=== PATIENT | male | born 1950 | race Caucasian/White ===

== ENCOUNTER 2024-05-01 13:21 | Day surgery (SDC) | payer OTHER, SELFPAY ==
[2024-05-01] VITALS (7 sets, daily range): BP systolic 99–136; BP diastolic 61–80; PULSE 62–81; RESP 12–18; TEMP 36.5–36.8; O2SAT 98–99
--- NOTE | 2024-05-01 | PATH_ITS ---
[facility] Accession Number: [id number] No. of containers..01 Tissue . 01 Material submitted: . colon - SIGMOID BIOPSIES . 01 Clinical history: . R/O APTHLOUS ULCERS . 01 Diagnosis: Colon, sigmoid, biopsies: Benign colonic mucosa with focal active colitis, along with focal slight architectural changes. Negative for dysplasia, microscopic colitis, or granuloma. See comment. -- Comment: The presence of focal active inflammation (no crypt abscess seen) with underlying inflammatory expansion of the lamina propria with basal lymphoplasmacytosis and surface mucosal erosion (aphthous inflammation) is not entirely specific and can be seen in infection, medication effect, but may be seen in the setting of early inflammatory bowel disease as well. Correlation with the endoscopic appearance and with clinical features is needed for further evaluation. -- Immunohistochemical stains performed with appropriate controls to assess plasma cells shows focal expansion of lamina propria by polytopic plasma cells using CD138, and kappa and lambda light chain immune stains. No definite chronic changes or granuloma seen. -- Technical Note: The immunohistochemical stains reported were performed at [facility] ([address], [facility] [address]). They were developed and their performance characteristics determined by [facility]. They have not been cleared or approved by the U.S. Food and Drug Administration, although such approval is not required for analyte-specific reagents of this type. [facility] 05/06/2024 [facility]8 Local . 01 Electronically signed: . Loren Weber MD, Pathologist NPI- [id number] . 01 Gross description: . Received in formalin with two patient identifiers and sigmoid biopsy, are three rodriguez soft tissue fragments, 0.3 to 0.4 cm in greatest dimension. Submitted in A1. ([id number]) /MRV 05/02/2024 1450 Local . 01 Pathologist provided ICD-10: Z12.11 . 01 CPT . 640919, [id number], [id number] Specimen Comment: A courtesy copy of this report has been sent to [phone] Performed at: [address] [facility] [address], [place], [place] [id number] MD Estebna Martinez MD Phone: [phone]
--- NOTE | 2024-05-01 14:26 | PM.HP.1 ---
History of Present Illness History of Present Illness Date Patient Seen: 05/01/24 Chief complaint: Dx Colonoscopy Narrative: Personal history of colon polyps Meds Home Medications and Allergies Home Medications Medication Instructions Recorded Confirmed Type amlodipine 5 mg tablet 5 mg PO DAILY 05/01/24 05/01/24 History aspirin 81 mg capsule 81 mg PO DAILY 05/01/24 05/01/24 History atorvastatin 40 mg tablet 40 mg PO DAILY 05/01/24 05/01/24 History omeprazole 20 mg tablet,delayed 20 mg PO DAILY 05/01/24 05/01/24 History release tamsulosin 0.4 mg capsule 0.4 mg PO BEDTIME 05/01/24 05/01/24 History Allergies Allergy/AdvReac Type Severity Reaction Status Date / Time No Known Drug Allergies Allergy Verified 05/01/24 14:14 Exam Narrative Exam Narrative: Oropharynx free of lesions Chest clear to auscultation percussion Cardiac exam reveals no S3 or murmur Assessment & Plan Assessment & Plan narrative: Personal history of colon polyps last colonoscopy 5 years ago need for follow-up colonoscopy. Risks, benefits, alternatives have been explained. Time-Based Coding :: [TOTAL MINUTES] spent with patient and on the chart (including review of chart, obtaining history, exam, reviewing outside data, placing orders, documenting exam and treatment plan, and counseling patient) on [DATE].
--- NOTE | 2024-05-01 14:27 | PM.OP.COLON ---
Operative Date/Time/Diagnoses Date of procedure: 05/01/24 Pre-op diagnosis: See indication and findings Procedure & Clinicians Study performed: Colonoscopy Indications: Personal history of colon polyps Surgeon: Lenny Angeles Procedure Notes Procedure in detail: After informed consent was obtained the patient was placed in left lateral decubitus position. The video colonoscope was introduced the rectum slowly advanced cecum. Preparation was good. On slow withdrawal mucosa was carefully examined. The scope was removed. The patient tolerated procedure well. Blood loss none Complications none Sedation mac Findings 1. Normal colonoscopy to cecum other than abnormal mucosa in the sigmoid colon. This consists of what appeared to be AVMs with a white exudate in the middle. Biopsies taken to rule out arhthous ulceration He should have follow-up colonoscopy in 10 years if in excellent health
[2024-05-01] MEDS: LACTATED RINGERS 1,000 ML 42 ML IV (14:36)
== END 2024-05-01 16:00 | disposition home or self-care (01) ==
PROVIDERS: PCP Internal Medicine; Referring Provider Internal Medicine Gastroenterology; Visit Provider Internal Medicine Gastroenterology
PROC: 0DJD8ZZ Inspection of Lower Intestinal Tract, Via Natural or Artificial Opening Endoscopic (ICD-10-PCS; CPT 45378; principal; 2024-05-01 14:30)
DX: Z12.11 Encounter for screening for malignant neoplasm of colon (principal); Z86.010 Personal history of colon polyps; K52.9 Noninfective gastroenteritis and colitis, unspecified
CPT/HCPCS: 45380; J2704